=== PATIENT | male | born 1970 | race Caucasian/White ===

== ENCOUNTER 2024-04-17 21:06 | Emergency (ER) | payer OTHER, SELFPAY ==
[2024-04-17 21:07] VITALS: BP 149/86
--- NOTE | 2024-04-17 22:35 | ED.GENMED ---
History of Present Illness
General
Chief Complaint: Back Pain
Source: patient
Exam Limitations: none
Time Seen by Provider: 04/17/24 22:21
Nursing documentation reviewed up to this point in time: agreed with
History of Present Illness
History of Present Illness:
This is a 53-year-old gentleman who has history of lumbar disc disease who notes low back pain that radiates down his left leg, an ongoing issue over the past month and a half. He has been following with a chiropractor, has been attending physical
therapy, was treated with 2 courses of prednisone taper, most recently completing perhaps 2 weeks ago and admits that his low back pain has been improving over the past month until this morning when he sneezed with onset of severe low back pain and
increased low back pain and increased pain and numbness down his left leg. Similar pain he experienced at onset of his back pain a month and a half ago.
He has been taking Tylenol and ibuprofen, his last dose of Advil was 11 AM. Last dose of Tylenol was 8:30 PM.
He denies abdominal pain, no saddle anesthesia, no difficulty moving his bowels or bladder. Low back pain is worse with movement of his trunk. He has had no falls.
He plans to schedule an appointment with Dr Washington.
He states he did undergo an MRI of his lumbar spine through [facility] which showed several herniated lumbar disks.
Past History
Past History
ED Past Medical History: Other (Celiac disease) and Other (Lumbar disc disease/left-sided sciatica)
ED Past Surgical History: Urological (Vasetectomy)
Social History
Tobacco: Non-smoker
Alcohol: None
Personal:
Living: with family
Employment: Employed
Family History
Family History: Negative Diabetes
Phy Exam
Physical Exam
Physical Exam:
GENERAL: Pleasant, appears in no acute distress. 53-year-old male appears his stated age, lying supine on stretcher, hips and knees flexed.
EYE: anicteric
NECK: Supple, nontender, no meningismus, no significant adenopathy.
ENT: oral mucosa is moist. No rhinorrhea.
CARDIAC: Regular rate and rhythm. no murmur.
LUNGS: Clear breath sounds bilaterally, no acute respiratory distress, no wheezes/rales/rhonchi
ABDOMEN: Soft, nondistended, without focal tenderness, no r/g, no cvat. normoactive BS.
BACK: No midline bony tenderness. Moderate tenderness left paralumbar region with moderate left paralumbar muscle spasm. Straight leg raising is mildly positive on the left.
NEUROLOGICAL: Alert and oriented x3, no focal neuro deficits. Motor strength is 5/5 bilaterally. Gross sensation is intact.
SKIN: Warm and dry, normal color, skin intact. No rash.
MUSCULOSKELETAL: No C/C/E. peripheral pulses are full and equal b/l. No palpable tenderness.
PSYCH: Normal and appropriate interaction.
Course
Orders/Labs/Results
Orders:
Orders
04/17/24 21:11
Lumbar Spine Complete, 4 View [CR Lumbar Spine Comp Min 4 Vw*] Urgent
Comment:
Reason For Exam: pain
04/17/24 22:34
Ketorolac [Toradol] 60 mg IM NOW STA
Prednisone [Deltasone] 50 mg PO NOW STA
diazePAM [Valium Injection] 10 mg IM NOW STA
Vital Signs
Initial and Last Documented VS:
Initial Vital Signs
Temp Pulse Resp BP Pulse Ox
97.8 F 78 16 149/86 100
04/17/24 21:07 04/17/24 21:07 04/17/24 21:07 04/17/24 21:07 04/17/24 21:07
Last Documented Vital Signs
Temp Pulse Resp BP Pulse Ox
97.8 F 78 16 149/86 100
04/17/24 21:07 04/17/24 21:07 04/17/24 21:07 04/17/24 21:07 04/17/24 21:07
MDM/Problems Addressed
Differential Diagnosis Includes:
Patient presents with acute exacerbation of low back pain with known lumbar disc disease, herniated disks, left sided sciatica.
No red flags in history nor exam. Nothing to suggest acute cord compression nor cauda equina syndrome. Nothing to suggest acute infectious process, no history of immune deficiency and no previous spinal surgeries nor recent procedures.
Lumbar spine x-ray shows mild DJD of L4-L5 L5-S1 but no evidence of fracture.
Will medicate for pain and muscle spasm with an IM dose of Toradol and Valium. Will give an oral dose of prednisone as well.
Plan is to improve comfort and discharged to home with prescription for prednisone taper. Plus or minus muscle relaxer.
Will plan for follow-up with orthopedics as patient already has planned.
Recommend continuing physical therapy as well as conservative management.
*Radiology
Radiology exam reviewed: radiology read reviewed
*Pulse Oximetry
Patient hypoxic: no
*Critical Care Note
Total Time (30-74mins, 75-104mins- exclusive of procedures): Not Applicable
Update Note
Update Note:
23:50
Patient feeling moderately improved. Has been able to get up and ambulate to the bathroom.
He does continue with moderate low back pain, worse with movement, bending.
Will give a dose of Vicodin now and will discharge to home with tapering dose of prednisone, short course of Flexeril for as needed muscle spasm as well as a few Vicodin for as needed moderate pain.
Discussed importance of avoiding NSAIDs while taking prednisone.
Prompt follow-up with orthopedics. Patient plans to call Dr. Akers's office tomorrow.
ED Attending Note
-
Portions of this chart may have been created with voice recognition software.� Occasional wrong word or��sound alike� substitutions may have occurred due to the inherent limitations of voice recognition software.
Discharge Plan
Departure
Patient Disposition: Home (Routine Discharge)
Date of Disposition: 04/17/24
Time of Disposition: 23:53
Patient with high blood pressure during this ER visit?: No
Condition: Good
Discharge Problem:
acute exacerbation of low back pain, Acute low back pain with sciatica
Instructions: Low Back Pain (DC), Sciatica (DC)
Prescriptions:
New
prednisone 10 mg Tablet
See Rx Instructions .ROUTE .COMPLEX Qty: 30 0RF
Rx Instructions:
Take By Mouth:
40 mg daily x3 days, 30 mg daily x3 days,
20 mg daily x3 days, 10 mg daily x3 days.
cyclobenzaprine 10 mg tablet
10 mg PO TIDPRN PRN (Reason: muscle spasm) Qty: 20 0RF
hydrocodone-acetaminophen 5-300 mg tablet
1 tab PO Q8H PRN (Reason: moderate pain) Qty: 10 0RF
No Action
folic acid 1 mg Tablet
1 mg PO DAILY 30 Days Qty: 30 0RF
cholecalciferol (vitamin D3) 25 mcg (1,000 unit) Tablet
2,000 unit PO DAILY 30 Days Qty: 30 0RF
oxycodone 5 mg Tablet
5 mg PO Q6HPRN PRN (Reason: moderate to severe pain ) 5 Days Qty: 20 0RF
aspirin 81 mg tablet,delayed release (DR/EC)
81 mg PO BID 28 Days Qty: 56 0RF
ketorolac 10 mg tablet
10 mg PO Q6H PRN (Reason: pain) 3 Days Qty: 12 0RF
Rx Instructions:
as needed for moderate to severe pain
Referrals:
Melvin Stern MD [Family Provider] -
Mariano Akers MD [Active] - Call in 1-3 days for appt
Interventions
Interventions:
*Risk Screen - Suicide Last Done: 04/17/24 22:30
*General Assessment Last Done: 04/17/24 22:30
*Neglect/Abuse Screening Last Done: 04/17/24 22:30
*ED COVID-19 Vaccine History Last Done: 04/17/24 22:30
ED-Musculoskeletal Assessment Last Done: 04/17/24 22:30
Discharge Date and Time
Print Language: CHINESE
[2024-04-17] MEDS: TORADOL 60 MG IM (22:41)
[2024-04-17] MEDS: DELTASONE 50 MG PO (22:42)
[2024-04-17] MEDS: VALIUM INJECTION 10 MG IM (22:42)
[2024-04-18] MEDS: NORCO 5/325 1 TABLET PO (00:13)
[2024-04-18 00:16] VITALS: BP 168/80
== END 2024-04-18 00:27 | disposition home or self-care (01) ==
LOC: EMR 21:06
PROVIDERS: EMERGENCY PHYSICIAN Emergency Medicine; FAMILY PHYSICIAN Family Medicine
DX: M54.42 Lumbago with sciatica, left side (principal)
CPT/HCPCS: 99284; 96372; 72110

== ENCOUNTER → 2024-11-11 08:41 | Outpatient (REF) | payer OTHER, SELFPAY | LOC: RAD 08:41 | PROVIDERS: ATTENDING PHYSICIAN Family Medicine | DX: Z00.00 Encounter for general adult medical examination without abnormal findings (principal); M85.80 Other specified disorders of bone density and structure, unspecified site; Z13.220 Encounter for screening for lipoid disorders | CPT/HCPCS: 77080 ==